=== PATIENT | male | born 1980 | race Two or more races ===

== ENCOUNTER 2020-08-30 12:36 | Emergency (ER) | payer OTHER ==
[~2020-08-30] VITALS: Ht 165.1 cm; Wt 59.0 kg
[2020-08-30] MEDS ORDERED: VISTARIL50 MG PO (16:16)
[2020-08-30] MEDS ORDERED: PEPCID AC20 MG PO (16:17)
== END 2020-08-30 16:30 | disposition home or self-care (01) ==
LOC: ER 12:36
DX: R00.0 Tachycardia, unspecified (principal); R06.02 Shortness of breath; F43.0 Acute stress reaction; F41.0 Panic disorder [episodic paroxysmal anxiety]; Z03.818 Encounter for observation for suspected exposure to other biological agents ruled out

== ENCOUNTER 2021-05-07 13:18 | Emergency (ER) | payer OTHER ==
[~2021-05-07] VITALS: Ht 165.1 cm; Wt 59.0 kg
[~2021-05-07 13:18] MED LIST: PEPCID AC20 MG PO; VISTARIL50 MG PO
== END 2021-05-07 16:45 | disposition home or self-care (01) ==
LOC: ER 13:18
DX: S20.212A Contusion of left front wall of thorax, initial encounter (principal); W18.39XA Other fall on same level, initial encounter; Y93.89 Activity, other specified; Y92.89 Other specified places as the place of occurrence of the external cause; Y99.8 Other external cause status